=== PATIENT | female | born 1950 | race Caucasian/White ===

== ENCOUNTER 2023-07-01 06:54 | Day surgery (SDC) | payer MEDICARE, OTHER ==
[~2023-07-01 06:54] MED LIST: Midazolam 1 MG/ML 2 ML SDV ONE; fentaNYL 100 MCG/2 ML SDV ONE
[2023-07-01] MEDS ORDERED: Midazolam 1 MG/ML 2 ML SDV IV ONE (06:55)
[2023-07-01] MEDS ORDERED: fentaNYL 100 MCG/2 ML SDV IV ONE (06:55)
[2023-07-01] MEDS: Dextrose 5%-0.45% NaCl 1,000 ML IV SCH (07:22)
[2023-07-01] MEDS: fentaNYL 100 MCG/2 ML SDV IV ONE ×4 (07:40→08:04)
[2023-07-01] MEDS: Midazolam 1 MG/ML 2 ML SDV IV ONE ×6 (07:41→07:55)
[2023-07-01 09:08] VITALS: BP 144/58; PULSE 79
== END 2023-07-01 09:21 | disposition home or self-care (01) ==
LOC: DL.ENDO 06:54
PROVIDERS: ATTEND Internal Medicine Gastroenterology
DX: Z12.11 Encounter for screening for malignant neoplasm of colon (principal); K63.9 Disease of intestine, unspecified; K64.4 Residual hemorrhoidal skin tags; K57.30 Diverticulosis of large intestine without perforation or abscess without bleeding; E11.9 Type 2 diabetes mellitus without complications; G47.00 Insomnia, unspecified; Z86.010 Personal history of colon polyps; Z88.8 Allergy status to other drugs, medicaments and biological substances
CPT/HCPCS: G0105; J2250; J3010; J7042